=== PATIENT | female | born 1980 | race Caucasian/White ===

== ENCOUNTER 2018-09-03 15:08 | Outpatient (CLI) | payer BC ==
--- NOTE | 2018-09-03 16:05 | ULT ---
THYROID ULTRASOUND: INDICATION: History of physical palpated abnormality within the thyroid gland. COMPARISON: None. FINDINGS: The right thyroid lobe measures 5.1 x 1.7 x 1.6 cm. The left thyroid lobe measures 4.4 x 1.7 x 1.7 c m. The thyroid isthmus measures 0.21 cm. No focal thyroid lesion is evident. IMPRESSION: No focal thyroid lesion. POS: MP
== END 2018-09-03 15:09 | disposition home or self-care (01) ==
LOC: SCSULT 15:08
PROVIDERS: ATTEND Surgery
DX: E04.1 Nontoxic single thyroid nodule (principal)
CPT/HCPCS: 76536

== ENCOUNTER 2018-09-07 15:46 | Outpatient (CLI) | payer BC | END 2018-09-07 15:47 | disposition home or self-care (01) | LOC: DTY/OP 15:46 | PROVIDERS: ATTEND Surgery | DX: E66.01 Morbid (severe) obesity due to excess calories (principal) | CPT/HCPCS: 97802 ==

== ENCOUNTER 2018-09-21 16:00 | Inpatient (IN) | payer OTHER ==
[2018-09-21 16:15] VITALS: BMI 40.6
[2018-10-01] MEDS ORDERED: Heparin 5,000 UNITS/ML VIAL ONE (06:23)
[2018-10-01] MEDS ORDERED: Fentanyl 100 MCG/2 ML VIAL ONE ×2 (06:26→09:14)
[2018-10-01] MEDS ORDERED: Bupivacaine/Epinephrine 0.25% 30 ML VIAL ONE (06:46)
[2018-10-01 07:06] LABS: ALT (SGPT) 26 U/L (8-55); AST (SGOT) 24 U/L (5-34); Albumin 4.1 g/dL (3.5-5.0); Alkaline Phosphatase 48 U/L (40-150); Bilirubin, Direct 0.2 mg/dL (0.1-0.3); Bilirubin, Total 0.8 mg/dL (0.2-1.2); Protein, Total 6.4 g/dL (6.0-8.3)
[2018-10-01] MEDS ORDERED: Midazolam HCl 2 mg/2 ml Vial ONE (07:14)
--- NOTE | 2018-10-01 07:20 | HP ---
CHIEF COMPLAINT: Morbid obesity. HISTORY OF PRESENT ILLNESS: The patient is a 38-year-old female, who has been overweight, attempted multiple weight loss programs without success. She is here for sleeve gastrectomy. PAST MEDICAL HISTORY: Significant for ADHD. PAST SURGICAL HISTORY: Ankle surgery, tonsillectomy, section. MEDICATIONS: Lexapro, Ambien, Claritin, and Xanax. ALLERGIES: SHE HAS NO KNOWN DRUG ALLERGIES. FAMILY HISTORY: Father has heart disease. Mother is in good health. SOCIAL HISTORY: She is . No tobacco. No alcohol. PHYSICAL EXAMINATION: VITAL SIGNS: Height 61, weight 213, body mass index 40.28. GENERAL: She is a well-developed, well-nourished female, in no apparent distress. HEENT: Good hair growth. Pupils equal, round, reactive. Extraocular motor intact. Pharynx clear. Good dentition. NECK: Supple. No thyroid masses. No carotid bruits. LUNGS: Clear. HEART: Regular rate and rhythm. No palpable breast masses. No lymphadenopathy. ABDOMEN: Soft, nondistended, nontender. No masses or hernias. BACK: No tenderness or spinal deformity. EXTREMITIES: Good pulses. No pedal edema. ASSESSMENT: Morbid obesity. PLAN: Laparoscopic sleeve gastrectomy. CONSENT: I have discussed planned procedure as well as risk of bleeding, infection, injury to the esophagus, spleen, loops of bowel, need to open, leakage from staple line. She understands and gives informed consent. Job ID: [id number]
[2018-10-01] MEDS ORDERED: Dextrose 50% Abboject 50 ML SYRINGE SLOW IVP PRN (08:43)
[2018-10-01] MEDS ORDERED: diphenhydrAMINE 50 MG/ML VIAL IVP PRN ×2 (08:43→09:06)
[2018-10-01] MEDS ORDERED: Promethazine HCl 25 MG/ML VIAL IM PRN ×3 (08:43→09:06)
[2018-10-01] MEDS ORDERED: hydrALAZINE 20 MG/ML VIAL SLOW IVP PRN (08:43)
[2018-10-01] MEDS ORDERED: Dextrose 5% in Water 1,000 ML IV PRN (08:43)
[2018-10-01] MEDS ORDERED: Hydrocodone-Acetamin 15 ML UDCUP PO PRN (08:43)
[2018-10-01] MEDS ORDERED: Ondansetron PF 4 MG/2 ML Vial IVP PRN ×2 (08:43→09:06)
[2018-10-01] MEDS ORDERED: PACU-Morphine 4MG/ML VIAL SLOW IVP PRN (08:50)
[2018-10-01] MEDS ORDERED: HYDROmorphone 2 MG/ML VIAL SLOW IVP PRN (08:50)
[2018-10-01] MEDS ORDERED: Ondansetron HCl/PF 4 MG/2 ML Vial IVP PRN (08:50)
[2018-10-01] MEDS ORDERED: Meperidine HCl/PF 25 MG/ML VIAL SLOW IVP PRN (08:50)
[2018-10-01] MEDS ORDERED: Morphine Sulfate 2 MG/ML SYRINGE SLOW IVP PRN (08:50)
[2018-10-01] MEDS ORDERED: Promethazine HCl 25 MG/ML VIAL ONE (08:50)
[2018-10-01] MEDS ORDERED: Promethazine HCl 25 MG/ML VIAL SLOW IVP PRN (08:50)
[2018-10-01] MEDS ORDERED: Zolpidem Tartrate 5 MG TAB PO PRN (09:06)
[2018-10-01] MEDS ORDERED: fentaNYL Citrate/PF 2,000 MCG in Sodium Chloride 0.9% 60 ML IV PRN (09:06)
[2018-10-01] MEDS ORDERED: diphenhydrAMINE 25 MG CAP PO PRN (09:06)
[2018-10-01] MEDS ORDERED: Naloxone HCl 0.4 mg/ml Vial IV PRN (09:06)
[2018-10-01] MEDS ORDERED: diphenhydrAMINE 50 MG/ML VIAL IM PRN (09:06)
[2018-10-01] MEDS ORDERED: D5 1/2 NS w/20 mEq KCL 1,000 ML ONE (09:13)
[2018-10-01] MEDS ORDERED: Communication Order-Pharmacy FS SCH (09:15)
[2018-10-01] MEDS ORDERED: Sodium Chloride 0.9% (PF) 10 ML VIAL FS PRN (09:41)
[2018-10-01] MEDS ORDERED: PROPOFOL 200 MG/20 ML VIAL ONE (10:37)
[2018-10-01] MEDS ORDERED: Ketorolac Tromethamine 30 MG/ML VIAL ONE (10:37)
[2018-10-01] MEDS ORDERED: Lidocaine 1% PF 5 ML VIAL ONE (10:37)
[2018-10-01] MEDS ORDERED: ePHEDrine 50 MG/ML VIAL ONE (10:37)
[2018-10-01] MEDS ORDERED: Glycopyrrolate 0.2 MG/ML 5 ML SYRINGE ONE (10:37)
[2018-10-01] MEDS ORDERED: Dexamethasone 20 MG/5 ML VIAL ONE (10:37)
[2018-10-01] MEDS ORDERED: Rocuronium Bromide 10 MG/ML (10ML VIAL) ONE (10:37)
[2018-10-01] MEDS ORDERED: Ondansetron PF 4 MG/2 ML Vial ONE (10:37)
[2018-10-01] MEDS ORDERED: diphenhydrAMINE 50 MG/ML VIAL ONE (10:37)
--- NOTE | 2018-10-01 12:15 | OP ---
DATE OF PROCEDURE: 10/01/2018 PREOPERATIVE DIAGNOSIS: Morbid obesity. PROCEDURES PERFORMED: Laparoscopic sleeve gastrectomy, intraoperative esophagogastroscopy. INDICATIONS: The patient is a 38-year-old female, morbidly obese, who has attempted multiple weight loss programs without success. FINDINGS: A 38-[place] bougie used. DESCRIPTION OF PROCEDURE: After informed consent was obtained, the patient was taken to the operating room, given general endotracheal anesthesia. She was placed in the supine position. Her abdomen was prepped and draped in usual fashion. Local anesthesia was infiltrated subcutaneously and deep. A 12-mm incision was performed approximately 8 inches above the xiphoid slightly to the left. Veress needle was inserted. Drop test performed. Pneumoperitoneum was created to a volume of 2 L of carbon dioxide. Utilizing a bladeless 12 mm trocar and 0-degree laparoscope, direct visual entry into the abdominal cavity was performed. Pneumoperitoneum was then created to a pressure of 15 mmHg. The patient was placed in steep reverse Trendelenburg position and a Sneha liver retractor inserted. Left lobe of the liver retracted superiorly. The pylorus identified and a 12-mm port placed on the right beneath it and two 12s placed on the left subcostal. The omentum was taken off the greater curvature 5 cm from the pylorus utilizing the LigaSure. Short gastrics divided with LigaSure and the left crura defined with the LigaSure. A 38-[place] bougie inserted, directed into the antrum. A linear 60 mm green load stapler used to divide the antrum to the bougie, gold load along the bougie, and a series of blues through the angle of His. Intraoperative endoscopy was performed and the video endoscope was inserted under direct vision and advanced into the sleeve. The staple line was inspected. There was no bleeding. Staple line was then tested by inflating the new stomach with pressurized air and water. There was no air leak. Stomach decompressed. Scope removed. The remnant of the stomach removed from the abdomen through the left lateral port site. Trocars and retractors were removed. The fascia was closed with 0 Vicryl suture and the GraNee needle. The skin was closed with interrupted 4-0 Rapide. Dermabond applied. The patient tolerated the procedure well, transferred to Recovery in good condition. Sponge and needle count verified correct x2. Job ID: [id number]
[2018-10-01] MEDS: Ketorolac Tromethamine 30 MG/ML VIAL IVP SCH ×3 (12:35→23:10)
[2018-10-01] MEDS: Pantoprazole 40 MG VIAL IVP SCH (12:36)
[2018-10-01] MEDS: CEFAZOLIN 2 GM in Premix Bag 1 BAG IVPB SCH ×2 (16:52→23:11)
[2018-10-01] MEDS: D5 1/2 NS w/20 mEq KCL 1,000 ML IV SCH ×2 (16:55→17:54)
[2018-10-02 04:58] LABS: #Lymphocytes 3.2 thou/uL (1.20-3.40); #Monocytes 0.9 thou/uL (0.11-0.59); #Neutrophils 11.8 thou/uL (1.40-6.50); %Basophils 0.1 % (0.0-1.0); %Eosinophils 0.2 % (0.0-10.0); %Lymphocytes 19.8 % (21.0-51.0); %Monocytes 5.4 % (0.0-10.0); %Neutrophils 74.4 % (42.0-75.0); Hemoglobin 11.5 g/dL (12.0-16.0); Mean Corpuscular HGB CONC 33.7 g/dL (32.0-36.0); Mean Corpuscular Hemoglobin 31.9 pg (27.0-31.0); Mean Corpuscular Volume 94.6 fL (78.0-98.0); Mean Platelet Volume 8.4 fL (7.4-10.4); Platelet Count 209 thou/uL (130-400); RBC Distribution Width 11.9 % (11.5-14.5); White Blood Cell (WBC) Count 15.9 thou/uL (4.8-10.8)
[2018-10-02 05:10] LABS: Anion Gap 8 mmol/L (10-20); BUN (Urea Nitrogen) 8 mg/dL (7.0-18.7); Calc. Creatinine Clearance 167 mL/min (70-130); Calcium 8.2 mg/dL (7.8-10.44); Carbon Dioxide 24 mmol/L (22-29); Chloride 109 mmol/L (98-107); Estimated GFR-MDRD Greater than 90; Glucose 113 mg/dL (70-105); Potassium 3.8 mmol/L (3.5-5.1); Sodium 137 mmol/L (136-145)
[2018-10-02] MEDS: Ketorolac Tromethamine 30 MG/ML VIAL IVP SCH (05:37)
[2018-10-02] MEDS: D5 1/2 NS w/20 mEq KCL 1,000 ML IV SCH (05:39)
[2018-10-02] MEDS ORDERED: Enoxaparin Sodium 40 MG/0.4 ML SYRINGE SC SCH (06:00)
[2018-10-02] MEDS: Pantoprazole 40 MG VIAL IVP SCH (07:49)
[2018-10-02] MEDS ORDERED: GASTROGRAFIN 30 ML BOT ONE (10:47)
--- NOTE | 2018-10-02 13:41 | RAD ---
Single contrast upper GI CLINICAL HISTORY: Postoperative gastric bypass, vertical sleeve FINDINGS: Real-time fluoroscopy performed with patient ingesting small volume radiopaque contrast. Co ntrast does traverse the esophagus and postoperative gastric lumen, into the normal caliber proximal small bowel, without evidence of abnormal leakage. IMPRESSION: No abnormal leakage of radiopaque contrast is demonstrated from the operative gastric lum en.
[2018-10-02 16:29] VITALS: BP 94/60; TEMP 98
[2018-10-03] MEDS ORDERED: Enoxaparin Sodium 40 MG/0.4 ML SYRINGE SC SCH (09:00)
--- NOTE | 2018-10-05 15:19 | DIS ---
DATE OF ADMISSION: 10/01/2018 DATE OF DISCHARGE: 10/02/2018 DISCHARGE DIAGNOSIS: Morbid obesity. PROCEDURES DURING ADMISSION: Laparoscopic sleeve gastrectomy, intraoperative esophagogastroscopy, and postoperative Gastrografin swallow. HOSPITAL COURSE: The patient was admitted, taken to the operating room, where she underwent sleeve gastrectomy. Postoperatively, she has done well. She is tolerating liquids well. She is discharged home on hydrocodone and Zofran and will follow up with me in 2 weeks. Job ID: [id number]
== END 2018-10-02 16:20 | disposition home or self-care (01) | DRG 621 ==
LOC: SURG A 10-01 06:04
PROVIDERS: ADMIT Surgery; ATTEND Surgery
PROC: 0DB64Z3 Excision of Stomach, Percutaneous Endoscopic Approach, Vertical (ICD-10-PCS; principal; 2018-10-01)
DX: E66.01 Morbid (severe) obesity due to excess calories (principal); F90.9 Attention-deficit hyperactivity disorder, unspecified type; Z68.41 Body mass index [BMI] 40.0-44.9, adult; Z79.899 Other long term (current) drug therapy
CPT/HCPCS: 36415; 74241; 80048; 80076; 85025; 88307; 88312; 94760; C9113; J0690; J1644; J1650; J1885; J2250; J2550; J3010; J3490; Q9963